=== PATIENT | male | born 1950 | race Caucasian/White ===

== ENCOUNTER 2017-08-29 23:08 | Emergency (ER) | payer MEDICARE ==
[2017-08-29] MEDS ORDERED: Lactated Ringers 1,000 ML IV ONE (23:11)
[2017-08-29] MEDS ORDERED: Ondansetron 4 MG/2 ML SDV IVPUSH ONE (23:11)
[2017-08-29] MEDS ORDERED: Ketorolac 30 MG/ML SDV IVPUSH ONE (23:11)
[2017-08-29] MEDS ORDERED: Sodium Chloride 0.9% 10 ML Syringe FLUSH PRN (23:12)
--- NOTE | 2017-08-29 23:15 | EDM.PDOC ---
ED HPI GENERAL MEDICAL PROBLEM - General Stated Complaint: KIDNEY STONE Time Seen by Provider: 08/29/17 23:11 Source of Information: Reports: Patient, RN Notes Reviewed History Limitations: Reports: No Limitations - History of Present Illness INITIAL COMMENTS - FREE TEXT/NARRATIVE: 67-year-old gentleman presents emergency department day complaint of right flank pain, he states on suddenly feels like a kidney stone which she has had in the past he is nauseated with vomiting Left Fank Pain Score (Numeric/FACES): 10 - Related Data Allergies Allergy/AdvReac Type Severity Reaction Status Date / Time atorvastatin [From Lipitor] Allergy Muscle Verified 08/29/17 23:18 Weakness Home Meds: Home Meds Insulin Glarg,Human.Rec.Analog [Lantus] 0 unit SUBCUT DAILY 08/30/17 [History] Insulin Lispro [HumaLOG] 100 unit SQ ASDIRECTED 08/30/17 [History] Liraglutide [Victoza 3-Tyler] 18 mg SQ ASDIRECTED 08/30/17 [History] Metoprolol Tartrate 25 mg PO ASDIRECTED 08/30/17 [History] Rivaroxaban [Xarelto] 1 each PO ASDIRECTED 08/30/17 [History] Simvastatin 40 mg PO BEDTIME 08/30/17 [History] metFORMIN [Glucophage] 500 mg PO BIDMEALS 08/30/17 [History] Past Medical History Genitourinary History: Reports: Renal Calculus Social & Family History - Tobacco Use Smoking Status *Q: Former Smoker ED ROS GENERAL - Review of Systems Review Of Systems: See Below Constitutional: Reports: No Symptoms Respiratory: Reports: No Symptoms Cardiovascular: Reports: No Symptoms GI/Abdominal: Reports: Abdominal Pain, Nausea, Vomiting : Reports: Flank Pain ED EXAM, RENAL/ - Physical Exam Exam: See Below Exam Limited By: No Limitations General Appearance: Alert, Moderate Distress Respiratory/Chest: No Respiratory Distress, Lungs Clear, Normal Breath Sounds, No Accessory Muscle Use Cardiovascular: Regular Rate, Rhythm, No Murmur GI/Abdominal: Soft, Tender (Right flank), Other (Obese) Course - Vital Signs Last Recorded V/S: Last Vital Signs Temp 98.0 F 08/29/17 23:28 Pulse 84 08/29/17 23:28 Resp 14 08/29/17 23:28 BP 160/64 H 08/29/17 23:28 Pulse Ox 94 L 08/29/17 23:28 - Orders/Labs/Meds Orders: Active Orders 24 hr Category Date Time Status Peripheral IV Care [RC] . DIRECTED Care 08/29/17 23:12 Active UA W/MICROSCOPIC [URIN] Urgent Lab 08/29/17 23:12 Ordered Sodium Chloride 0.9% [Saline Flush] Med 08/29/17 23:12 Active 10 ml FLUSH ASDIRECTED PRN Peripheral IV Insertion Adult [OM.PC] Urgent Oth 08/29/17 23:12 Ordered Medication Orders Sodium Chloride (Saline Flush) 10 ml FLUSH ASDIRECTED PRN PRN Reason: Keep Vein Open Last Admin: 08/29/17 23:10 Dose: 10 ml Labs: Laboratory Tests 08/29/17 Range/Units 23:12 Urine Color Yellow Urine Appearance Clear Urine pH 6.5 (4.5-8.0) Ur Specific [place] 1.010 (1.008-1.030) Urine Protein Negative (NEGATIVE) mg/dL Urine Glucose (UA) Normal (NEGATIVE) mg/dL Urine Ketones Negative (NEGATIVE) mg/dL Urine Occult Blood Moderate (NEGATIVE) Urine Nitrite Negative (NEGAITVE) Urine Bilirubin Negative (NEGATIVE) Urine Urobilinogen 1 (NORMAL) mg/dL Ur Leukocyte Esterase Negative (NEGATIVE) Urine RBC 0-5 (0-5) Urine WBC 0-5 (0-5) Ur Epithelial Cells Rare Amorphous Sediment Not seen Urine Bacteria Few Urine Mucus Not seen Meds: Medications Generic Name Dose Route Start Last Admin Trade Name Freq PRN Reason Stop Dose Admin Sodium Chloride 10 ml 08/29/17 23:12 08/29/17 23:10 Saline Flush FLUSH 10 ml ASDIRECTED PRN Administration Keep Vein Open Discontinued Medications Generic Name Dose Route Start Last Admin Trade Name Freq PRN Reason Stop Dose Admin Lactated Ringer's 1,000 mls @ 999 mls/hr 08/29/17 23:11 08/29/17 23:20 Ringers, Lactated IV 08/30/17 00:11 999 mls/hr BOLUS ONE Administration Ketorolac Tromethamine 30 mg 08/29/17 23:11 08/29/17 23:19 Toradol IVPUSH 08/29/17 23:12 30 mg ONETIME ONE Administration Ondansetron HCl 4 mg 08/29/17 23:11 08/29/17 23:18 Zofran IVPUSH 08/29/17 23:12 4 mg ONETIME ONE Administration Departure - Departure Time of Disposition: 00:53 Disposition: Home, Self-Care 01 Condition: Good Clinical Impression: Left flank pain - Discharge Information Referrals: Remi Lucas, [employer] [Primary Care Provider] - Additional Instructions: Continue to use the as needed for pain control, please follow-up with your primary care provider in the morning for further evaluation, call return to the emergency department with worsening of symptoms - My Orders Last 24 Hours: My Active Orders 08/29/17 23:12 Peripheral IV Care [RC] . DIRECTED UA W/MICROSCOPIC [URIN] Urgent Sodium Chloride 0.9% [Saline Flush] 10 ml FLUSH ASDIRECTED PRN Peripheral IV Insertion Adult [OM.PC] Urgent - Assessment/Plan Last 24 Hours: My Active Orders 08/29/17 23:12 Peripheral IV Care [RC] . DIRECTED UA W/MICROSCOPIC [URIN] Urgent Sodium Chloride 0.9% [Saline Flush] 10 ml FLUSH ASDIRECTED PRN Peripheral IV Insertion Adult [OM.PC] Urgent Plan: Assessment Acuity = acute Site and laterality = left flank pain Etiology = probable nephrolithiasis Manifestations = nausea and vomiting Location of injury = Home Lab values = urinalysis unremarkable Plan He had good improvement with the Toradol injection and 1 Zofran, he declined further workup which included a CT scan he will follow-up at the [facility] tomorrow morning, prescription written for Toradol 10 mg 1 tab by mouth every 6 hours when necessary total #20 This note was dictated using [employer] voice recognition software please call with any questions on syntax or pavithra.
== END 2017-08-30 01:10 | disposition home or self-care (01) ==
LOC: JP.ED 23:08
DX: R10.9 Unspecified abdominal pain (principal); Z88.8 Allergy status to other drugs, medicaments and biological substances; Z79.4 Long term (current) use of insulin; Z79.899 Other long term (current) drug therapy; Z87.891 Personal history of nicotine dependence
CPT/HCPCS: 81001; 96361; 96374; 96375; 99283; 99284; J1885; J2405; J7050; J7120